=== PATIENT | male | born 1955 | race Caucasian/White ===

== ENCOUNTER 2018-09-08 10:36 | Outpatient (REF) | payer OTHER, SELFPAY ==
[2018-09-08 13:39] LABS: ALT 27 U/L (12-78); AST 17 U/L (15-37); Albumin 3.9 g/dL (3.4-5.0); Alkaline Phosphatase 101 U/L (46-116); Anion Gap 9.3 mmol/L (3-11); BUN 16 mg/dL (7-18); Bilirubin, Total 0.7 mg/dL (0.2-1.0); CO2 29.7 mmol/L (21.0-32.0); CREATININE 1.02 mg/dL (0.70-1.30); Chloride 105 mmol/L (98-107); Cholesterol 189 mg/dL (50-200); Glucose 97 mg/dL (70-100); HDL Cholesterol 76 mg/dL (40-60); LDL CHOLESTEROL 103 mg/dL (<100); Potassium 4.4 mmol/L (3.5-5.1); Sodium 144 mmol/L (136-145); Total Protein 7.7 g/dL (6.4-8.2); Triglyceride 63 mg/dL (30-150)
[2018-09-09 09:09] LABS: PSA, Screening 1.3 ng/ml (0-4.5)
[2018-09-09 11:16] LABS: Hepatitis C Ab w Rflx HCV PCR Negative (NEGAT)
== END 2018-09-08 10:56 ==
LOC: NCHCN 10:36
PROVIDERS: PCP Internal Medicine; Visit Provider Family Medicine
DX: Z00.00 Encounter for general adult medical examination without abnormal findings (principal); Z13.220 Encounter for screening for lipoid disorders; Z12.5 Encounter for screening for malignant neoplasm of prostate; N40.0 Benign prostatic hyperplasia without lower urinary tract symptoms; Z11.59 Encounter for screening for other viral diseases; K21.9 Gastro-esophageal reflux disease without esophagitis; G25.81 Restless legs syndrome
CPT/HCPCS: 80053; 80061; 83721; 84153; 86803

== ENCOUNTER 2020-06-20 01:19 | Outpatient (CLI) | payer OTHER, SELFPAY ==
--- NOTE | 2020-06-20 | DI.US_ITS ---
EXAM: US CAROTID CLINICAL HISTORY: CAROTID ATHEROSCLEROSIS,I70.8. TECHNIQUE: Ultrasound carotids performed using grayscale, color-flow, and spectral Doppler imaging. COMPARISON: No exams were available for comparison FINDINGS: RIGHT CAROTID ARTERY: Plaque: Minimal. Velocity elevation: None. LEFT CAROTID ARTERY: Plaque: Minimal. Velocity elevation: None. VERTEBRAL ARTERIES: Antegrade flow. Measurements: R Bulb: 63.6cm/s PS / 20.6cm/s ED R CCA: 95cm/s PS / 22.3cm/s ED R ECA: 118.5cm/s PS / 22.2cm/s ED R ICA Prox: 96.2cm/s PS /33.3cm/s ED R ICA Mid: 85.1cm/s PS / 30.5cm/s ED R ICA Distal: 94.4cm/s PS /34.2cm/s ED R Vert: 49.5cm/s PS / 16.7cm/s ED R SVR: 1.01 R DVR: 1.49 L Bulb: 96.2cm/s PS /28.7cm/s ED L CCA: 100.9cm/s PS / 27.8cm/s ED L ECA: 96.2cm/s PS /17.6cm/s ED L ICA Prox:93.4cm/s PS / 32.2cm/s ED L ICA Mid: 79.6cm/sPS / 33.3cm/s ED L ICA Distal: 84.3cm/s PS / 28.1cm/s ED L Vert: 53.8cm/s PS / 18.5cm/s ED L SVR: 0.93 L DVR: 1.16 IMPRESSION: No evidence for hemodynamically significant carotid stenosis. Criteria for Carotid Stenosis: Normal: ICA PSV <125 cm/s no plaque or intimal thickening is visible. <50% stenosis: ICA PSV <125 cm/s and plaque or intimal thickening is visible. 50-69% stenosis: ICA PSV is 125-250 cm/s and plaque is visible. >70% stenosis to near occlusion: ICA PSV >250 cm/s with visible plaque and luminal narrowing. DATA REPOSITORY:
== END 2020-06-20 01:39 ==
PROVIDERS: PCP Family Medicine; Visit Provider Family Medicine
DX: I70.8 Atherosclerosis of other arteries (principal)
CPT/HCPCS: 93880

== ENCOUNTER 2021-03-14 11:13 | Outpatient (REF) | payer OTHER, SELFPAY ==
[2021-03-17 09:27] LABS: PSA, Screening 1.9 ng/mL (0.0-4.5)
== END 2021-03-14 11:14 | disposition home or self-care (01) ==
LOC: NCHCN 11:13
PROVIDERS: PCP Family Medicine; Visit Provider Family Medicine
DX: R63.4 Abnormal weight loss (principal); Z12.5 Encounter for screening for malignant neoplasm of prostate
CPT/HCPCS: 84153

== ENCOUNTER 2021-10-23 17:24 | Outpatient (REF) | payer MEDICARE, SELFPAY ==
[2021-10-23 15:43] LABS: ALT 24 U/L (16-63); AST 19 U/L (15-37); Alkaline Phosphatase 105 U/L (46-116); BUN 18 mg/dL (7-18); Bilirubin, Total 0.6 mg/dL (0.2-1.0); CREATININE 1.1 mg/dL (0.70-1.30); Calcium 8.9 mg/dL (8.5-10.1); Chloride 106 mmol/L (98-107); GGT 27 U/L (15-85); Glucose 90 mg/dL (74-106); Potassium 4.7 mmol/L (3.5-5.1); Sodium 140 mmol/L (136-145); Total Protein 7.4 g/dL (6.4-8.2)
[2021-10-23 16:05] LABS: HCT 46.4 % (40.0-50.0); MCH 29.9 pg (27.0-33.0); MCHC 32.3 % (32.0-36.0); MCV 92.4 fL (80-95); MPV 10.1 fL (8.0-11.0); Platelet Count 227 10^3/uL (130-400); RBC 5.02 10^6/uL (4.36-5.78); RDW 12.5 % (11.8-14.1); RDW-SD 42.5 fL
[2021-10-23 16:20] LABS: Vitamin D 25 Total 31.5 ng/mL (30-100)
[2021-10-23 23:08] LABS: PSA, Screening 2.1 ng/mL (0.0-4.5)
[2021-10-24 10:31] LABS: Hepatitis C Ab w Rflx HCV PCR Negative (Negative)
[2021-10-24 10:36] LABS: HIV-1/2 Ag & Ab Screen Negative (Negative)
== END 2021-10-23 17:25 | disposition home or self-care (01) ==
LOC: NCHCN 17:24
PROVIDERS: PCP Family Medicine; Visit Provider Family Medicine
DX: R63.4 Abnormal weight loss (principal); N40.0 Benign prostatic hyperplasia without lower urinary tract symptoms; Z11.4 Encounter for screening for human immunodeficiency virus [HIV]; Z11.59 Encounter for screening for other viral diseases; Z12.5 Encounter for screening for malignant neoplasm of prostate
CPT/HCPCS: 80053; 82306; 84153; 85027; 86803; 87389; 82977

== ENCOUNTER 2022-10-27 16:57 | Outpatient (REF) | payer MEDICARE, SELFPAY ==
[2022-10-27 16:40] LABS: ALT 27 U/L (16-63); AST 18 U/L (15-37); Albumin 3.8 g/dL (3.4-5.0); Alkaline Phosphatase 87 U/L (46-116); Anion Gap 6.5 mmol/L (3-11); BUN 22 mg/dL (7-18); Bilirubin, Total 0.5 mg/dL (0.2-1.0); CO2 30.5 mmol/L (21.0-32.0); CREATININE 1.1 mg/dL (0.70-1.30); Calcium 8.7 mg/dL (8.5-10.1); Calculated LDL 97 mg/dL (<100); Chloride 106 mmol/L (98-107); Cholesterol 180 mg/dL (<200); Estimated GFR 74.04 (mL/min/1.73m2); Glucose 100 mg/dL (74-106); HDL Cholesterol 71 mg/dL (40-60); Potassium 4.6 mmol/L (3.5-5.1); Sodium 143 mmol/L (136-145); Triglyceride 60 mg/dL (<150)
[2022-10-27 23:02] LABS: PSA, Screening 2.2 ng/mL (<=4.5)
== END 2022-10-27 16:58 | disposition home or self-care (01) ==
LOC: NCHCN 16:57
PROVIDERS: PCP Family Medicine; Visit Provider Family Medicine
DX: Z00.00 Encounter for general adult medical examination without abnormal findings (principal); R63.4 Abnormal weight loss; N40.0 Benign prostatic hyperplasia without lower urinary tract symptoms
CPT/HCPCS: 80053; 80061; 84153

== ENCOUNTER 2023-05-19 10:07 | Outpatient (REF) | payer MEDICARE, SELFPAY ==
[2023-05-19 23:04] LABS: PSA, Screening 1.4 ng/mL (<=4.5)
== END 2023-05-19 10:08 | disposition home or self-care (01) ==
LOC: NCHCN 10:07
PROVIDERS: PCP Family Medicine; Visit Provider Family Medicine
DX: N40.0 Benign prostatic hyperplasia without lower urinary tract symptoms (principal); Z12.5 Encounter for screening for malignant neoplasm of prostate
CPT/HCPCS: 84153

== ENCOUNTER 2023-10-28 18:16 | Outpatient (REF) | payer MEDICARE, SELFPAY ==
[2023-10-28 18:18] LABS: ALT 30 U/L (16-63); AST 18 U/L (15-37); Albumin 3.9 g/dL (3.4-5.0); Alkaline Phosphatase 86 U/L (46-116); Anion Gap 9.8 mmol/L (3-11); BUN 19 mg/dL (7-18); Bilirubin, Total 0.4 mg/dL (0.2-1.0); CO2 29.2 mmol/L (21.0-32.0); CREATININE 1.1 mg/dL (0.70-1.30); Calcium 8.8 mg/dL (8.5-10.1); Calculated LDL 102 mg/dL (<100); Chloride 107 mmol/L (98-107); Cholesterol 178 mg/dL (<200); Estimated GFR 73.58 (mL/min/1.73m2); Glucose 92 mg/dL (74-106); HDL Cholesterol 67 mg/dL (40-60); Potassium 4.7 mmol/L (3.5-5.1); Sodium 146 mmol/L (136-145); Total Protein 7.2 g/dL (6.4-8.2); Triglyceride 48 mg/dL (<150)
[2023-10-28 19:07] LABS: Vitamin D 25 Total 31.6 ng/mL (30-100)
[2023-10-29 18:38] LABS: PSA, Screening 1.5 ng/mL (<=4.5)
== END 2023-10-28 18:17 | disposition home or self-care (01) ==
LOC: NCHCN 18:16
PROVIDERS: PCP Family Medicine; Referring Provider Family Medicine; Visit Provider Family Medicine
DX: Z00.00 Encounter for general adult medical examination without abnormal findings (principal); N40.0 Benign prostatic hyperplasia without lower urinary tract symptoms
CPT/HCPCS: 80053; 80061; 82306; 84153

== ENCOUNTER → 2023-12-16 03:25 | Outpatient (CLI) | payer MEDICARE, SELFPAY ==
--- NOTE | 2023-12-16 14:15 | DI.RAD_ITS ---
Exam(s) XR KNEE RT 3V AP,LAT,CARRIE EXAM: XR KNEE RT 3V AP,LAT,CARRIE CLINICAL HISTORY: PAIN UBALDO KNEE JOINTS, [id number] PAIN RT KNEE. TECHNIQUE: 2D digital imaging was performed of the right knee. Three views obtained. AP, lateral an d PA tunnel views were obtained. COMPARISON: No priors for comparison. FINDINGS: BONES: No acute fracture is present. No bony destructive lesion is seen. JOINTS: The knee is normally aligned. No joint effusion is seen. SOFT TISSUE: Normal. IMPRESSION: Unremarkable radiographs of the right knee. DATA REPOSITORY: RADIATION DOSE DELIVERED:
--- NOTE | 2023-12-16 14:15 | DI.RAD_ITS ---
Exam(s) XR KNEE LT 3V AP,LAT,CARRIE EXAM: XR KNEE LT 3V AP,LAT,CARRIE CLINICAL HISTORY: PAIN UBALDO KNEE JOINTS, PAIN LT KNEE, [id number]. TECHNIQUE: 2D digital imaging was performed of the left knee. Three images were obtained. AP, late ral and PA tunnel views were obtained. COMPARISON: No priors for comparison. FINDINGS: BONES: No acute fracture is present. No bony destructive lesion is seen. JOINTS: The knee is normally aligned. No joint effusion is seen. No loose body. SOFT TISSUE: Normal. IMPRESSION: Normal radiographs of the left knee. DATA REPOSITORY: RADIATION DOSE DELIVERED:
== END ==
PROVIDERS: PCP Family Medicine; Visit Provider Family Medicine
DX: M25.561 Pain in right knee (principal); M25.562 Pain in left knee
CPT/HCPCS: 73562

== ENCOUNTER 2025-02-07 04:07 | Outpatient (CLI) | payer MEDICARE, SELFPAY ==
[2025-02-07 22:14] LABS: PSA, Screening 1.2 ng/mL (<=4.5)
== END 2025-02-07 04:08 | disposition home or self-care (01) ==
LOC: LBO 04:07
PROVIDERS: PCP Family Medicine; Visit Provider Urology
DX: Z12.5 Encounter for screening for malignant neoplasm of prostate (principal)
CPT/HCPCS: 36415; 84153

== ENCOUNTER 2025-03-29 17:17 | Outpatient (REF) | payer MEDICARE, SELFPAY ==
[2025-03-29 20:40] LABS: HCT 41.4 % (40.0-50.0); HGB 13.5 g/dL (13.5-17.5); MCH 30.0 pg (27.0-33.0); MCHC 32.6 % (32.0-36.0); MCV 92 fL (80-95); MPV 9.6 fL (8.0-11.0); Platelet Count 221 10^3/uL (130-400); RBC 4.50 10^6/uL (4.36-5.78); RDW 13.1 % (11.8-14.1); RDW-SD 44.7 fL; WBC 4.49 10^3/uL (4.4-10.8)
[2025-03-29 21:00] LABS: ALT 26 U/L (16-63); AST 16 U/L (15-37); Albumin 3.9 g/dL (3.4-5.0); Alkaline Phosphatase 86 U/L (46-116); Anion Gap 5.3 mmol/L (3-11); BUN 19 mg/dL (7-18); Bilirubin, Total 0.5 mg/dL (0.2-1.0); CO2 31.7 mmol/L (21.0-32.0); Calcium 9.1 mg/dL (8.5-10.1); Chloride 106 mmol/L (98-107); Estimated GFR 73.12 (mL/min/1.73m2); Glucose 89 mg/dL (74-106); Potassium 4.3 mmol/L (3.5-5.1); Sodium 143 mmol/L (136-145); Total Protein 7.1 g/dL (6.4-8.2)
== END 2025-03-29 17:18 | disposition home or self-care (01) ==
LOC: NCHCN 17:17
PROVIDERS: PCP Family Medicine; Visit Provider Family Medicine
DX: R42 Dizziness and giddiness (principal)
CPT/HCPCS: 80053; 85027

== ENCOUNTER 2025-05-18 12:01 | Outpatient (REF) | payer MEDICARE, SELFPAY ==
[2025-05-18 13:10] LABS: Glucose Negative (Negative)
== END 2025-05-18 12:02 | disposition home or self-care (01) ==
LOC: LBN 12:01
PROVIDERS: PCP Family Medicine; Visit Provider Urology
DX: R33.9 Retention of urine, unspecified (principal)
CPT/HCPCS: 81003

== ENCOUNTER 2025-07-03 10:24 | Outpatient (REF) | payer MEDICARE, SELFPAY ==
[2025-07-03 16:16] LABS: Anion Gap 7.1 mmol/L (3-11); BUN 19 mg/dL (9-23); CO2 31.9 mmol/L (20.0-31.0); Calcium 9.4 mg/dL (8.3-10.6); Chloride 105 mmol/L (98-107); Glucose 74 mg/dL (74-106); Potassium 4.1 mmol/L (3.5-5.1); Sodium 144 mmol/L (136-145)
[2025-07-03 16:17] LABS: Glucose Negative (Negative)
[2025-07-03 16:27] LABS: C & S Indicated? Yes
[2025-07-03 16:40] LABS: Sodium, Urine 26 mmol/L
[2025-07-04 17:59] LABS: Osmolality, Urine 250 mOsm/kg (150-1150)
== END 2025-07-03 10:25 | disposition home or self-care (01) ==
LOC: NCHCN 10:24
PROVIDERS: PCP Family Medicine; Visit Provider Family Medicine
DX: R35.1 Nocturia (principal)
CPT/HCPCS: 80048; 83935; 81003; 81015; 84300; 87086

== ENCOUNTER 2025-07-30 01:05 | Emergency (ER) | payer MEDICARE, SELFPAY ==
[2025-07-30 01:12] VITALS: BP 144/75; PULSE 67; RESP 18; TEMP 36.5; O2SAT 97
--- NOTE | 2025-07-30 01:27 | W.ED.GENAD ---
Discharge Plan Disposition Patient Disposition: Home Condition: Good Discharge Details Clinical Impression: Headache, Localized swelling, mass and lump, neck Primary Care Provider: Radha Reynolds ED Provider: Glenn Sow [place] Meds and New Rx's Prescriptions: Continued tamsulosin 0.4 MG capsule 0.4 mg PO DAILY gabapentin 300 MG capsule 2 tab PO HS Qty: 180 Rx Instructions: 600mg + 100mg tablets gabapentin 100 MG capsule 100 mg PO HS Qty: 90 3RF Rx Instructions: 100mg prn +600mg HS for RLS multivitamin [Once Daily] 1 EACH tablet 1 tab PO DAILY omega 4-mev-zeb-fish oil 1 EACH capsule 1 cap PO DAILY sennosides [Senokot] 1 TAB tablet 1 ea PO PRN PRN omeprazole magnesium [Prilosec OTC] 20 MG tablet,delayed release (DR/EC) 20 mg PO BID Discharge Instructions Additional Instructions: You were seen in the ED for headache as well as for an anterior neck mass. CT of your head was performed and shows no acute intracranial pathology and no bleed. Your headache is pretty much resolved with Tylenol and your neurologic exam is reassuring. Is unclear what the etiology of the neck mass is. I do not feel that it is infection related. I would observe over the next few days and follow-up with primary care for possible outpatient ultrasound. He should return to the ED for any severe worsening headache, neurologic change, difficulty breathing or swallowing, increasing swelling/pain/redness in the neck. Stand Alone Forms: Portal Information HPI General Mode of arrival: ambulatory. Date/Time Provider Initiated Documentation: 07/30/25 01:10. Limitations to Documentation: no limitations. Information obtained by: patient, family and RN notes reviewed. HPI Narrative: Patient presents to ED complaint of headache. Patient reports headache started earlier in the afternoon and seem to be a normal type headache. He does state that he typically does not get headaches. Became worse to the point where he took some Tylenol. Did seem to go away but came back prompting him to take more Tylenol. Unable to sleep and lying down seem to make the headache worse and he described it as throbbing in nature. Did seem to get better when he stood up and decided to come into the ED. Does report 2 falls today while sliding with his family. Describes them as controlled falls and does not think he struck his head at all. He is not on any anticoagulation. He denies any neurologic change. He denies any nausea or vomiting. Headache has essentially resolved at this point. He and his also have noted a lump in the area of his Wesley's apple on his neck. They both feel this is new as of today. Patient does not really feel that it is causing much pain. He is not have any difficulty breathing or swallowing. thought it looked a little bit red. Related Data Home Medications ?Medication ?Instructions ?Recorded ?Confirmed multivitamin (Once Daily tablet) 1 tab PO DAILY 05/28/14 07/30/25 omega 9-dqj-rnn-fish oil 300 1 cap PO DAILY 05/28/14 07/30/25 mg-1,000 mg capsule tamsulosin 0.4 mg capsule 0.4 mg PO DAILY 10/29/16 07/30/25 gabapentin 300 mg capsule 2 tab PO HS #180 tab-caps 11/05/16 07/30/25 omeprazole magnesium 20 mg 20 mg PO BID 11/25/16 07/30/25 tablet,delayed release (Prilosec OTC) sennosides 8.6 mg tablet (Senokot) 1 ea PO PRN PRN 11/25/16 07/30/25 gabapentin 100 mg capsule 100 mg PO HS #90 tab-caps 04/14/17 07/30/25 Previous Rx's ?Medication ?Instructions ?Recorded gabapentin 100 mg capsule 100 mg PO HS #90 tab-caps 04/14/17 Allergies Allergy/AdvReac Type Severity Reaction Status Date / Time sleep meds AdvReac Unknown hyperactive Uncoded 11/27/16 06:40 General Stated Complaint: Headache LESLIE: 3 Exam Narrative Exam Narrative: Const: WDWN elderly male in NAD. VS per triage. HEENT: NC/AT. Normal facial exam. Neck: Supple. Trachea midline. There is a subcutaneous, firm, rubbery small grape size mass in the anterior neck. It is not tender. There is no significant redness or warmth. No palpable lymph nodes or salivary glands. Thyroid seems normal. Lungs: Normal respiratory effort. Neuro: A+O x 3. Normal speech, mentation, gait. Cranial nerves II - XII grossly intact. No gross motor or sensory deficit. Course Vital Signs Vital signs: Vital Signs Temperature 97.7 F 07/30/25 01:12 Pulse 67 07/30/25 01:12 Respiratory Rate 18 07/30/25 01:12 Blood Pressure 144/75 H 07/30/25 01:12 Temperature 97.7 F 07/30/25 01:12 Temperature Source Temporal Artery Scan 07/30/25 01:12 Pulse 67 07/30/25 01:12 Respiratory Rate 18 07/30/25 01:12 Blood Pressure 144/75 H 07/30/25 01:12 Blood Pressure Position Sitting 07/30/25 01:12 Oxygen Delivery Method Room Air 07/30/25 01:12 Oxygen Flow Rate 0 07/30/25 01:12 Pain Level 1 07/30/25 01:20 Medical Decision Making Patient presenting to ED with primary complaint of headache which he does not typically get. He did have a couple of falls today while sliding though he does not recall striking his head. He is not on anticoagulation. Headaches are not thunderclap in nature and worsened over time but were bothersome enough that he had to take Tylenol. Was unable to sleep tonight because of a throbbing sensation. No real headache to speak of now. Normal neurologic exam. Low suspicion for intracranial bleed associated with the falls but given lack of history of headaches we will err on side of caution and obtain noncontrast CT. I am not concerned for SAH or meningitis given presentation and do not feel that he requires LP. In regards to this cystlike structure in his anterior neck it seems very subcutaneous. It is not fluctuant and not abscess-like in nature. It is more firm and rubbery and seems cystic in nature. It does not appear to be associated with the thyroid, lymph nodes, salivary glands. There is no difficulty with breathing or swallowing and again seems superficial and subcutaneous. Would not proceed with any type of I&D. Recommend observation over the next few days and follow-up with primary care if no changes. CT head is negative per preliminary radiology read. Patient reassured and to be discharged home. Follow-up with primary care. Return precautions provided. PFSH All Active Problems (Updated 07/30/25 @ 02:28 by Glenn Sow MD) Localized swelling, mass and lump, neck (Acute) Headache (Acute) Medical History GERD (gastroesophageal reflux disease) Restless legs syndrome JEEVAN (obstructive sleep apnea) BPH (benign prostatic hypertrophy) Surgical History EGD - [facility] (11/27/16) Colonoscopy - [facility] (11/27/16) Social History Smoking/Tobacco Use Status: Never Smoking risk assessment performed?: Yes Alcohol Intake: current Alcohol Intake frequency: holidays/special occasions only Drug use: Rarely Substance use type: marijuana Details: a couple times a year- 'I don't like it' Housing: house Do you feel safe at home: Yes Do you feel safe in your relationship?: Yes
--- NOTE | 2025-07-30 01:30 | DI.CT_ITS ---
Exam(s) CT HEAD WO EXAM: CT HEAD WO CLINICAL HISTORY: fall x2 today; headache. TECHNIQUE: Imaging Protocol: Axial computed tomography images with coronal and sagittal reformatted images were created and reviewed COMPARISON: No exams were available for comparison FINDINGS: Ventricles and Extra axial spaces: Normal in size and morphology for the patient's age. Hemorrhage: None. Cerebral parenchyma: No evidence of acute infarct or mass. Midline shift: None. Brainstem/Cerebellum: Normal. Bones: No skull or facial fractures. Visualized Paranasal sinuses:Mucosal thickening in the frontal, ethmoid and maxillary sinuses. Mastoids: Clear. Soft Tissues: Unremarkable. ORBITS: Unremarkable. PITUITARY: Not enlarged. IMPRESSION: No acute intracranial process. The preliminary [facility] report was reviewed. RADIATION DOSE DELIVERED: Total DLP DATA REPOSITORY: All CT scans at this facility are submitted to the National Radiology Data Registry (NRDR) Dose Index Registry (DIR) with the [employer] ([employer]). RADIATION OPTIMIZATION: All CT scans at this facility use at least one of these dose optimization techniques: automated exposure control; mA and/or kV adjustment per patient size (includes targeted exams where dose is matched to clinical indication); or iterative reconstruction.
--- NOTE | 2025-07-30 02:20 | DI.[facility]_ITS ---
PROCEDURE INFORMATION: Exam: CT Head Without Contrast Exam date and time: 07/30/2025 2:00 AM Age: 70 years old Clinical indication: Pain; Headache not specified; Fallx2 today, headache starting in temples and into back of head TECHNIQUE: Imaging protocol: Computed tomography of the head without contrast. Radiation optimization: All CT scans at this facility use at least one of these dose optimization techniques: automated exposure control; mA and/or kV adjustment per patient size (includes targeted exams where dose is matched to clinical indication); or iterative reconstruction. COMPARISON: No relevant prior studies available. FINDINGS: Brain: No acute intracranial hemorrhage, mass-effect, midline shift, or extra-axial collection is seen. The joy white matter differentiation appears preserved. Cerebral ventricles: The ventricular system and basilar cisterns appear appropriate in size and configuration. Paranasal sinuses: There is patchy mucoperiosteal thickening in the paranasal sinuses. Mastoid air cells: The mastoid air cells appear well-aerated. Auditory system: The middle ear cavities appear clear. Bones: The bony calvarium appears intact. No depressed skull fracture is seen. Soft tissues: No significant scalp lesion is seen. IMPRESSION: No acute intracranial abnormality seen. Dictated and Authenticated by: Freddy Wren MD. Orderin Juanjose Elizabeth MD
[2025-07-30 03:13] VITALS: BP 124/64; PULSE 62; RESP 17; TEMP 36.6; O2SAT 97
== END 2025-07-30 03:13 | disposition home or self-care (01) ==
PROVIDERS: Emergency Provider Emergency Medicine; PCP Family Medicine
DX: R51.9 Headache, unspecified (principal); R22.1 Localized swelling, mass and lump, neck
CPT/HCPCS: 99283; 99284; 70450